=== PATIENT | male | born 2000 | race Caucasian/White ===

== ENCOUNTER 2021-04-21 07:54 | Day surgery (SDC) | payer OTHER ==
[~2021-04-21] VITALS: Ht 177.8 cm; Wt 51.0 kg
[2021-04-21] MEDS ORDERED: NIGHT TIME SLEE25 MG PO (08:48)
[2021-04-21 11:10] VITALS: BP 119/86; PULSE 87; TEMP 97.6
--- NOTE | 2021-04-21 11:10 | NUR ---
Patient arrives to [facility] via cart, accompanied by Endo RN Saurabh. He is alert and oriented. He ambulates to the chair in his room with steady gait. PIV to TKO. Monitoring is applied -VSS and WNL on room air. He is offered and receives a muffin and juice. His parents are at the bedside.
[2021-04-21 11:15] VITALS: BP 113/87; PULSE 80
[2021-04-21 11:30] VITALS: BP 116/84; PULSE 82
--- NOTE | 2021-04-21 11:30 | NUR ---
Patient is tolerating PO well. He requests and receives a second muffin. Dr. Munson comes to the bedside and spends time talking with the patient and his family.
[2021-04-21 11:45] VITALS: BP 118/83; PULSE 85
--- NOTE | 2021-04-21 11:58 | NUR ---
Patient has met discharge criteria. Discharge instructions are discussed. He denies any questions and verbalizes understanding. PIV is removed with catheter intact and hemostasis acheived. He is finishing his muffin and then will change and notify staff when he is ready to be dismissed.
--- NOTE | 2021-04-21 12:25 | NUR ---
Patient is escorted to the exit via wheelchair by staff. He is discharged to home with ride in private vehicle to the care of his parents at 1225.
== END 2021-04-21 12:25 | disposition home or self-care (01) ==
LOC: SDCO 07:54
DX: K21.00 Gastro-esophageal reflux disease with esophagitis, without bleeding (principal); K52.9 Noninfective gastroenteritis and colitis, unspecified; K50.10 Crohn's disease of large intestine without complications; F17.210 Nicotine dependence, cigarettes, uncomplicated; Z20.822 Contact with and (suspected) exposure to COVID-19
CPT/HCPCS: J2704; J7030